=== PATIENT | female | born 1940 | race Caucasian/White ===

== ENCOUNTER → 2018-09-18 11:44 | Outpatient (CLI) | payer MEDICARE, SELFPAY ==
[2018-09-18 12:27] LABS: Add Manual Diff / Slide Review NO; Basophils Absolute Auto 100 /uL (0-100); Basophils Percent Auto 0.7 % (0-2); Eosinophils Absolute Auto 100 /uL (0-450); Eosinophils Percent Auto 1.5 % (2-4); Hematocrit 45.6 % (36-46); Hemoglobin 15.1 g/dL (12.0-16.0); Lymphocytes Absolute Auto 1900 /uL (1100-4500); Lymphocytes Percent Auto 27.3 % (25-40); Mean Corpuscular HGB Conc 33.1 % (30-36); Mean Corpuscular Hemoglobin 29.4 PG (26-34); Mean Corpuscular Volume 88.9 fL (80-100); Monocytes Absolute Auto 600 /uL (0-900); Monocytes Percent Auto 7.9 % (3-14); Neutrophils Absolute Auto 4400 /uL (1500-7000); Neutrophils Percent Auto 62.6 % (50-75); Platelet Count 231 X10^3/uL (150-400); Red Blood Cell Count 5.13 X10^6/uL (4.0-5.2); White Blood Cell Count 7.1 X10^3/uL (4.5-11.0)
[2018-09-18 12:40] LABS: Alanine Aminotransferase 23 IU/L (9-52); Albumin 4.6 g/dL (3.5-5.0); Albumin Globulin Ratio 1.5 (1.0-2.8); Alkaline Phosphatase 47 U/L (38-126); Aspartate Aminotransferase 24 IU/L (14-36); Blood Urea Nitrogen 12 mg/dL (7-17); Calcium 9.7 mg/dL (8.4-10.2); Carbon Dioxide 26 mmol/L (22-32); Chloride 101 mmol/L (98-107); Estimated Glomerular Filt Rate > 60.0 mL/min (>60); Glucose 105 mg/dL (80-110); HEMOLYSIS < 15 (0-50); Potassium 4.1 mmol/L (3.4-5.1); Sodium 137 mmol/L (137-145); Total Protein 7.6 g/dL (6.3-8.2)
[2018-09-18 13:43] LABS: TSH w/ Reflex to FT4 2.15 uIU/mL (0.47-4.68)
== END ==
PROVIDERS: PCP Family Medicine; Visit Provider Family Medicine
DX: E78.2 Mixed hyperlipidemia (principal); F02.80 Dementia in other diseases classified elsewhere, unspecified severity, without behavioral disturbance, psychotic disturbance, mood disturbance, and anxiety; G30.9 Alzheimer's disease, unspecified; I10 Essential (primary) hypertension
CPT/HCPCS: 36415; 80053; 84443; 85025

== ENCOUNTER → 2018-10-16 12:11 | Outpatient (CLI) | payer MEDICARE, SELFPAY | PROVIDERS: PCP Family Medicine; Visit Provider Family Medicine | DX: R30.0 Dysuria (principal) | CPT/HCPCS: 87077; 87086; 87147; 87186 ==

== ENCOUNTER 2019-06-07 10:33 | Emergency (ER) | payer MEDICARE, SELFPAY ==
--- NOTE | 2019-06-07 10:58 | DI.RAD.S_ITS ---
PROCEDURE: XR CHEST 1V INDICATIONS: chest pain TECHNIQUE: One view of the chest was acquired. COMPARISON: [facility], CR, XR LUMBAR SPINE 2-3V, 06/07/2019, 11:30. FINDINGS: Surgical changes and devices: None. Lungs and pleura: Lungs are clear. No pleural effusions or pneumothorax. Mediastinum: The cardiac contours are within normal limits. The aorta demonstrates calcification and tortuosity. Bones and chest wall: Age-appropriate bony degenerative changes are seen. No suspicious bony lesions. Overlying soft tissues appear unremarkable. IMPRESSION: Portable chest within normal limits. Dictated by: Ander Lagunas M.D. on 06/07/2019 at 11:03 Approved by: Ander Lagunas M.D. on 06/07/2019 at 11:04
[2019-06-07 11:04] VITALS: BP 149/62; PULSE 65; RESP 16; TEMP 36.8; O2SAT 98
--- NOTE | 2019-06-07 11:07 | ED_ITS ---
HPI - Syncope General Chief Complaint: Syncope Stated Complaint: GLF Time Seen by Provider: 06/07/19 10:48 Source: EMS Mode of arrival: EMS Limitations: no limitations History of Present Illness HPI narrative: The patient is an 78-year-old female with history of Alzheimer's presenting with her daughter after possible syncopal episode and ground level fall. Daughter states around 5:00 a.m. they heard is the patient pounding on a door or wall. She apparently got up the middle of night to use the restroom when she fell. They're able to get her back up into bed without much difficulty. Daughter went into the room to help get her out of bed this morning. She sat her up in the bed she had a staring off into space look and fell backwards on the bed she quickly came around. There was no foaming at the mouth shaking or urinary incontinence. She has questionable back pain. Patient now really has no complaints. Upon sitting her up her lower lumbar back does seem to hurt her. Related Data Home Medications Medication Instructions Recorded Confirmed CA PANTOTHENATE/FOLIC ACID/VIT 1 tab PO QDAY #0 07/23/12 03/24/19 (MULTIVITAMIN) cholecalciferol (vitamin D3) 2,000 unit PO QDAY #0 07/23/12 03/24/19 [Vitamin D3] ASPIRIN (Aspir-Low) 162 mg PO HS #0 12/04/12 03/24/19 niacin 100 mg PO QDAY #0 12/04/12 03/24/19 Previous Rx's Medication Instructions Recorded donepezil 10 mg tablet 10 mg PO BEDTIME #90 tab 03/24/19 hydrochlorothiazide 25 mg tablet 25 mg PO QDAY #90 tab 03/24/19 sertraline 50 mg tablet 50 mg PO DAILY #90 tab 03/24/19 tramadol 50 mg PO Q8H PRN #10 tab 06/07/19 Allergies Allergy/AdvReac Type Severity Reaction Status Date / Time No Known Drug Allergies Allergy Verified 03/24/19 13:56 Review of Systems Review of Systems ROS Unobtainable: All systems reviewed & are unremarkable except as noted in HPI and below Constitutional Constitutional: Denies chills, Denies fever(s), Denies lethargy and Denies we akness Eyes Eyes: Denies change in vision, Denies eye discharge, Denies irritation and Denies loss of vision ENT Ears, Nose, Mouth, and Throat: Denies change in voice, Denies neck pain and Denies sore throat Cardiovascular Cardiovascular: Denies chest pain, Reports syncope, Denies rapid heart rate, D enies dyspnea and Denies dyspnea on exertion Respiratory Respiratory: Denies cough, Denies dyspnea, Denies dyspnea on exertion and Denies wheezing Gastrointestinal Gastrointestinal: Denies abdominal pain, Denies change in bowel habits, Denies diarrhea, Denies nausea and Denies vomiting Musculoskeletal Musculoskeletal: Denies neck pain Integumentary/Breasts Skin/Breast: Denies pruritus, Denies erythema, Denies rash and Denies wounds Neurologic Neurologic: Denies confusion, Reports syncope, Denies loss of vision and Denies weakness Psychiatric Psychiatric: Denies anxiety, Denies confusion, Denies depression, Denies homicidal ideation and Denies suicidal ideation Allergic/Immunologic Allergic/Immunologic: Denies wheezing Patient History Medical History Alzheimer's dementia (Suspected) Essential hypertension Mixed hyperlipidemia Status post biopsy of thyroid gland (11/25/14) Social History marital status: Smoking Status: Never smoker alcohol intake: current (ON OCCASION ) substance use type: does not use Smoking Status: Never smoker Exam Initial Vital Signs Initial Vital Signs: Vital Signs Temperature 98.3 F 06/07/19 11:04 Pulse Rate 65 06/07/19 11:04 Respiratory Rate 16 06/07/19 11:04 Blood Pressure 149/62 H 06/07/19 11:04 Pulse Oximetry 98 06/07/19 11:04 GENERAL: Alert well-appearing acting elderly female and in distress. HEENT: Head atraumatic,EOMI, pupils reactive, face symmetric, CARDIOVASCULAR: Regular rate and rhythm without murmurs, rubs or gallops. RESPIRATORY: Breath sounds equal bilaterally, no wheezes rales or rhonchi. ABDOMEN: Soft, nontender. Normoactive bowel sounds all 4 quadrants. No guarding or rebound. BACK: No midline or vertebral tenderness she does have some left lower lumbar no sign of trauma EXTREMITIES: Normal range of motion, no clubbing or edema. Neurovascularly i ntact. Pelvis and hip stable nontender NEUROLOGICAL: Alert and oriented x 2. Senior Applications Developer strength equal bilaterally able to lift lower extremity SKIN: Warm, dry, no laceration, no petechiae, no rashes or lesions. Course Orders Ordered: ED Orders 06/07/19 10:58 XR chest 1V Stat EKG-12 Lead Stat 06/07/19 11:18 CT head/brain wo con Stat XR lumbar spine 2-3V Stat 06/07/19 11:59 Complete Blood Count AUTO DIFF Stat Comprehensive Metabolic Panel Stat Lipase Stat Partial Thromboplastin Time Stat Prolactin Stat Prothrombin Time INR Stat Troponin & CK Cardiac Panel Stat Discontinued Medications Ketorolac Tromethamine (Toradol) 15 mg IV NOW ONE Stop: 06/07/19 12:59 Last Admin: 06/07/19 13:04 Dose: 15 mg Documented by: DAMIÁN Vital Signs Vital signs: Vital Signs - 8 hr 06/07/19 11:04 06/07/19 12:03 06/07/19 12:30 Temperature 98.3 F Pulse Rate 65 59 L 67 Respiratory Rate 16 22 19 Blood Pressure [Left Arm] 149/62 H 148/83 H 145/80 H Pulse Oximetry 98 100 99 06/07/19 13:27 06/07/19 14:15 Temperature Pulse Rate 67 69 Respiratory Rate 17 18 Blood Pressure [Left Arm] 141/82 H 150/74 H Pulse Oximetry 100 100 MDM - Syncope Lab Data Attestation: I reviewed the patient's lab results. Result diagrams: 06/07/19 11:59 06/07/19 11:59 Labs: Lab Results 06/07/19 06/07/19 06/07/19 Range/Units 11:59 11:59 11:59 WBC 13.8 H (4.5-11.0) X10^3/uL RBC 5.18 (4.0-5.2) X10^6/uL Hgb 15.3 (12.0-16.0) g/dL Hct 45.4 (36-46) % MCV 87.6 (80-100) fL MCH 29.6 (26-34) PG MCHC 33.8 (30-36) % RDW 14.2 (11.6-14.8) % Plt Count 250 (150-400) X10^3/uL Neut % (Auto) 87.2 H (50-75) % Lymph % (Auto) 7.6 L (25-40) % Custer % (Auto) 4.9 (3-14) % Eos % (Auto) 0.1 L (2-4) % Baso % (Auto) 0.2 (0-2) % Neut # (Auto) 14947 H (2906-5991) /uL Lymph # (Auto) 1000 L (7596-0412) /uL Custer # (Auto) 700 (0-900) /uL Eos # (Auto) 0 (0-450) /uL Baso # (Auto) 0 (0-100) /uL PT 10.8 (10.1-12.7) SECONDS INR 0.9 (0.9-1.3) APTT 28 (26.4-36.2) SECONDS Sodium 132 L (137-145) mmol/L Potassium 3.2 L (3.4-5.1) mmol/L Chloride 94 L (98-107) mmol/L Carbon Dioxide 29 (22-32) mmol/L BUN 10 (7-17) mg/dL Creatinine 0.50 L (0.52-1.04) mg/dL Estimated GFR > 60.0 (>60) mL/min BUN/Creatinine Ratio 20.0 (6-22) Glucose 132 H (80-110) mg/dL Calcium 9.5 (8.4-10.2) mg/dL Total Bilirubin 1.0 (0.2-1.3) mg/dL AST 38 H (14-36) IU/L ALT 22 (<35) IU/L Alkaline Phosphatase 71 (38-126) U/L Total Creatine Kinase 124 (30-135) U/L CK-MB (CK-2) 2.64 H (<2.37) ng/mL CK-MB (CK-2) Rel Index 2.1 (1.5-5.0) % Troponin I < 0.012 (0.01-0.034) ng/mL Total Protein 7.6 (6.3-8.2) g/dL Albumin 4.5 (3.5-5.0) g/dL Globulin 3.1 (1.7-4.1) g/dL Albumin/Globulin Ratio 1.5 (1.0-2.8) Lipase 56 (23-300) U/L Prolactin (3.0-18.6) ng/mL 06/07/19 Range/Units 11:59 WBC (4.5-11.0) X10^3/uL RBC (4.0-5.2) X10^6/uL Hgb (12.0-16.0) g/dL Hct (36-46) % MCV (80-100) fL MCH (26-34) PG MCHC (30-36) % RDW (11.6-14.8) % Plt Count (150-400) X10^3/uL Neut % (Auto) (50-75) % Lymph % (Auto) (25-40) % Custer % (Auto) (3-14) % Eos % (Auto) (2-4) % Baso % (Auto) (0-2) % Neut # (Auto) (1731-1037) /uL Lymph # (Auto) (2346-8793) /uL Custer # (Auto) (0-900) /uL Eos # (Auto) (0-450) /uL Baso # (Auto) (0-100) /uL PT (10.1-12.7) SECONDS INR (0.9-1.3) APTT (26.4-36.2) SECONDS Sodium (137-145) mmol/L Potassium (3.4-5.1) mmol/L Chloride (98-107) mmol/L Carbon Dioxide (22-32) mmol/L BUN (7-17) mg/dL Creatinine (0.52-1.04) mg/dL Estimated GFR (>60) mL/min BUN/Creatinine Ratio (6-22) Glucose (80-110) mg/dL Calcium (8.4-10.2) mg/dL Total Bilirubin (0.2-1.3) mg/dL AST (14-36) IU/L ALT (<35) IU/L Alkaline Phosphatase (38-126) U/L Total Creatine Kinase (30-135) U/L CK-MB (CK-2) (<2.37) ng/mL CK-MB (CK-2) Rel Index (1.5-5.0) % Troponin I (0.01-0.034) ng/mL Total Protein (6.3-8.2) g/dL Albumin (3.5-5.0) g/dL Globulin (1.7-4.1) g/dL Albumin/Globulin Ratio (1.0-2.8) Lipase (23-300) U/L Prolactin 9.8 (3.0-18.6) ng/mL Imaging Data CT scan - head: Radiologist's Impression: PROCEDURE: CT HEAD/BRAIN WO CON INDICATIONS: passed out fall, can't remember TECHNIQUE: Noncontrast 4.5 mm thick angled axial sections acquired from the foramen magnum to the vertex, with coronal and sagittal reformats. For radiation dose reduction, the following was used: automated exposure control, adjustment of mA and/or kV according to patient size. COMPARISON: [facility], , BRAIN WITHOUT CONTRAST, 06/15/2017, 12:33. FINDINGS: Image quality: Excellent. CSF spaces: Basal cisterns are patent. No extra-axial fluid collections. The ventricles are symmetric in size and shape. Brain: No intracranial bleeds or masses. There is cerebral volume loss for age, with resultant ventricular and sulcal prominence. There are periventricular and deep white matter chronic small vessel ischemic changes. There is intracranial internal carotid artery atherosclerosis. Skull and face: Calvarium and visualized facial bones appear intact, without suspicious lesions. Sinuses: Visualized sinuses and mastoids are clear. IMPRESSION: No acute intracranial hemorrhage is seen. No acute intracranial process is seen. Dictated by: Ander Lagunas M.D. on 06/07/2019 at 10:44 lumbar: Radiologist's Impression: PROCEDURE: XR LUMBAR SPINE 2-3V INDICATIONS: fall pain TECHNIQUE: 3 views of the lumbar spine were acquired. COMPARISON: [facility], CR, XR CHEST 1V, 06/07/2019, 11:30. [facility], CR, L-SPINE 2-3 VIEWS, 07/17/2012, 9:51. FINDINGS: Bones: 5 [id number] vertebrae are present. There is normal bony alignment. Mild T12 anterior wedge deformity seen, with 20% loss of height anteriorly. No suspicious bony lesions. The disc spaces are relatively well-preserved. Facet arthropathy is seen, which is most prominent inferiorly. Soft tissues: Overlying bowel gas pattern is normal. No suspicious soft tissue calcifications. IMPRESSION: Mild T12 anterior wedge deformity, which is age-indeterminate. If it would be helpful for clinical management decision making, please consider a dedicated CT study for further evaluation. Dictated by: Ander Lagunas M.D. on 06/07/2019 at 11:04 ECG Data Attestation: I personally reviewed and interpreted this ECG as follows: Prior ECG tracings: not available for review Interpretation: Sinus rhythm rate 65 p.r. interval 206 QRS 81 QTC 439 no to patient depression or T-wave inversion no priors to compare MDM Narrative Medical decision making narrative: The patient is found to have compression fracture at T12. While laying still she is completely asymptomatic however with any movement she does have pain. She is given Toradol and had ambulation trial with walker. She ambulated very well. Unknown reason for fall last night however the power went out and she was unable to see so that may have contributed. At this time her pain is controlled she is ambulating no need for admission. I've discussed this with the daughter as well. Recommend outpatient follow-up. Discharge Plan Departure Patient Disposition: Home Clinical Impression: Closed wedge compression fracture of T12 vertebra Qualifiers: Encounter type: initial encounter Qualified Code(s): S22.080A - Wedge compression fracture of T11-T12 vertebra, initial encounter for closed fracture Instructions: DI for Vertebral Fracture Activity Restrictions/Additional Instructions: *You have been diagnosed with compression fracture T12 *What to do: At this time recommend ambulation with walker it will help take pain off the spine. The bone should heal without any surgery. At this time c onservative management with pain control own *Continue to take medications as directed Tylenol 650 mg every 4-6 hours if needed for [id number] Tramadol 0.5 -1 tablet every 6 hours if needed for severe pain *Follow up with your primary care provider in 2-3 days *Return to ER if you should have increasing pain, leg weakness, loss of urine or stool or any new, worsening or concerning symptoms CONTROLLED SUBSTANCE DISCHARGE (Narcotoic/benzodiazepine/Flexeril/Phenergan) 1. You have been prescribed narcotic medications, it does have acetaminophen/Tylenol/paracetamol in it so do not take extra Tylenol or Tylenol containing products TRAMADOL DOES NOT CONTAIN TYLENOL 2. Please understand that we cannot provide further refills of narcotics, benzodiazepines or controlled substances through the ED and her pain management will need to be through your provider. 3. While on these medications you cannot drive or operate heavy machinery. 4. You cannot sign legal documents or perform any duties such as this. 5. As long as you're taking opiate pain medications he should also be taking a stool softener such as Colace, Dulcolax, MiraLAX or prune juice, to help avoid constipation. Prescriptions: New tramadol 50 mg tablet 50 mg PO Q8H PRN (Reason: pain) Qty: 10 RF: 0 No Action donepezil 10 mg tablet 10 mg PO BEDTIME Qty: 90 RF: 3 hydrochlorothiazide 25 mg tablet 25 mg PO QDAY Qty: 90 RF: 3 sertraline 50 mg tablet 50 mg PO DAILY Qty: 90 RF: 3 CA PANTOTHENATE/FOLIC ACID/VIT (MULTIVITAMIN) 1 tab PO QDAY Qty: 0 RF: 0 cholecalciferol (vitamin D3) [Vitamin D3] 2,000 UNIT capsule 2,000 unit PO QDAY Qty: 0 RF: 0 niacin 100 MG tablet 100 mg PO QDAY Qty: 0 RF: 0 ASPIRIN (Aspir-Low) 162 mg PO HS Qty: 0 RF: 0 Referrals: Rell Juárez MD [Primary Care Provider] -
--- NOTE | 2019-06-07 11:18 | DI.RAD.S_ITS ---
PROCEDURE: XR LUMBAR SPINE 2-3V INDICATIONS: fall pain TECHNIQUE: 3 views of the lumbar spine were acquired. COMPARISON: [facility], CR, XR CHEST 1V, 06/07/2019, 11:30. [facility], RAUL, L-SPINE 2-3 VIEWS, 07/17/2012, 9:51. FINDINGS: Bones: 5 [id number] vertebrae are present. There is normal bony alignment. Mild T12 anterior wedge deformity seen, with 20% loss of height anteriorly. No suspicious bony lesions. The disc spaces are relatively well-preserved. Facet arthropathy is seen, which is most prominent inferiorly. Soft tissues: Overlying bowel gas pattern is normal. No suspicious soft tissue calcifications. IMPRESSION: Mild T12 anterior wedge deformity, which is age-indeterminate. If it would be helpful for clinical management decision making, please consider a dedicated CT study for further evaluation. Dictated by: Ander Lagunas M.D. on 06/07/2019 at 11:04 Approved by: Ander Lagunas M.D. on 06/07/2019 at 11:06
--- NOTE | 2019-06-07 11:18 | DI.CT.S_ITS ---
PROCEDURE: CT HEAD/BRAIN WO CON INDICATIONS: passed out fall, can't remember TECHNIQUE: Noncontrast 4.5 mm thick angled axial sections acquired from the foramen magnum to the vertex, with coronal and sagittal reformats. For radiation dose reduction, the following was used: automated exposure control, adjustment of mA and/or kV according to patient size. COMPARISON: [facility], MR, BRAIN WITHOUT CONTRAST, 06/15/2017, 12:33. FINDINGS: Image quality: Excellent. CSF spaces: Basal cisterns are patent. No extra-axial fluid collections. The ventricles are symmetric in size and shape. Brain: No intracranial bleeds or masses. There is cerebral volume loss for age, with resultant ventricular and sulcal prominence. There are periventricular and deep white matter chronic small vessel ischemic changes. There is intracranial internal carotid artery atherosclerosis. Skull and face: Calvarium and visualized facial bones appear intact, without suspicious lesions. Sinuses: Visualized sinuses and mastoids are clear. IMPRESSION: No acute intracranial hemorrhage is seen. No acute intracranial process is seen. Dictated by: Ander Lagunas M.D. on 06/07/2019 at 10:44 Approved by: Ander Lagunas M.D. on 06/07/2019 at 10:46
[2019-06-07 12:03] VITALS: BP 148/83; PULSE 59; RESP 22; O2SAT 100
[2019-06-07 12:06] LABS: Add Manual Diff / Slide Review NO; Basophils Absolute Auto 0 /uL (0-100); Basophils Percent Auto 0.2 % (0-2); Eosinophils Absolute Auto 0 /uL (0-450); Eosinophils Percent Auto 0.1 % (2-4); Hematocrit 45.4 % (36-46); Hemoglobin 15.3 g/dL (12.0-16.0); Lymphocytes Absolute Auto 1000 /uL (1100-4500); Lymphocytes Percent Auto 7.6 % (25-40); Mean Corpuscular HGB Conc 33.8 % (30-36); Mean Corpuscular Hemoglobin 29.6 PG (26-34); Mean Corpuscular Volume 87.6 fL (80-100); Monocytes Absolute Auto 700 /uL (0-900); Monocytes Percent Auto 4.9 % (3-14); Neutrophils Absolute Auto 12000 /uL (1500-7000); Neutrophils Percent Auto 87.2 % (50-75); Platelet Count 250 X10^3/uL (150-400); Red Blood Cell Count 5.18 X10^6/uL (4.0-5.2); Red Cell Distribution Width 14.2 % (11.6-14.8); White Blood Cell Count 13.8 X10^3/uL (4.5-11.0)
[2019-06-07 12:22] LABS: INR 0.9 (0.9-1.3); Prothrombin Time 10.8 SECONDS (10.1-12.7)
[2019-06-07 12:25] LABS: PTT Partial Thromboplastin Tim 28 SECONDS (26.4-36.2)
[2019-06-07 12:27] LABS: Alanine Aminotransferase 22 IU/L (<35); Albumin 4.5 g/dL (3.5-5.0); Albumin Globulin Ratio 1.5 (1.0-2.8); Alkaline Phosphatase 71 U/L (38-126); Aspartate Aminotransferase 38 IU/L (14-36); Blood Urea Nitrogen 10 mg/dL (7-17); Calcium 9.5 mg/dL (8.4-10.2); Carbon Dioxide 29 mmol/L (22-32); Chloride 94 mmol/L (98-107); Creatine Kinase 124 U/L (30-135); Estimated Glomerular Filt Rate > 60.0 mL/min (>60); Globulin 3.1 g/dL (1.7-4.1); Glucose 132 mg/dL (80-110); HEMOLYSIS < 15 (0-50); Lipase 56 U/L (23-300); Potassium 3.2 mmol/L (3.4-5.1); Sodium 132 mmol/L (137-145); Total Protein 7.6 g/dL (6.3-8.2)
[2019-06-07 12:30] VITALS: BP 145/80; PULSE 67; RESP 19; O2SAT 99
[2019-06-07 12:39] LABS: Troponin I < 0.012 ng/mL (0.01-0.034)
[2019-06-07 12:42] LABS: CKMB % Relative Index 2.1 % (1.5-5.0); Creatine Kinase MB 2.64 ng/mL (<2.37)
[2019-06-07 12:44] LABS: Prolactin 9.8 ng/mL (3.0-18.6)
[2019-06-07] MEDS: KETOROLAC 60 MG/2 ML VIAL 15 MG IV (13:04)
[2019-06-07 13:27] VITALS: BP 141/82; PULSE 67; RESP 17; O2SAT 100
[2019-06-07 14:15] VITALS: BP 150/74; PULSE 69; RESP 18; O2SAT 100
--- NOTE | 2019-06-07 14:15 | PC.NURSE ---
SBA with patient and walker to the bathroom and back.
== END 2019-06-07 14:49 | disposition home or self-care (01) ==
PROVIDERS: Emergency Provider Emergency Medicine; PCP Family Medicine
DX: S22.080A Wedge compression fracture of T11-T12 vertebra, initial encounter for closed fracture (principal); I10 Essential (primary) hypertension; W18.30XA Fall on same level, unspecified, initial encounter
CPT/HCPCS: 36415; 70450; 71045; 72100; 80053; 82550; 82553; 83690; 84146; 84484; 85025; 85610; 85730; 93005; 96374; 99285; J1885

== ENCOUNTER → 2022-06-13 09:50 | Outpatient (CLI) | payer MEDICARE, SELFPAY ==
[2022-06-13 10:45] LABS: Add Manual Diff / Slide Review NO; Basophils Absolute Auto 0 /uL (0-100); Basophils Percent Auto 0.6 % (0-2); Eosinophils Absolute Auto 100 /uL (0-450); Eosinophils Percent Auto 1.2 % (2-4); Hematocrit 43.5 % (36-46); Hemoglobin 14.3 g/dL (12.0-16.0); Lymphocytes Absolute Auto 1100 /uL (1100-4500); Lymphocytes Percent Auto 14.6 % (25-40); Mean Corpuscular Hemoglobin 29.9 PG (26-34); Mean Corpuscular Volume 90.7 fL (80-100); Monocytes Absolute Auto 500 /uL (0-900); Monocytes Percent Auto 6.7 % (3-14); Neutrophils Absolute Auto 5600 /uL (1500-7000); Neutrophils Percent Auto 76.9 % (50-75); Platelet Count 244 X10^3/uL (150-400); Red Blood Cell Count 4.79 X10^6/uL (4.0-5.2); Red Cell Distribution Width 15.8 % (11.6-14.8); White Blood Cell Count 7.3 X10^3/uL (4.5-11.0)
[2022-06-13 10:59] LABS: Alanine Aminotransferase 18 IU/L (<35); Albumin 4.2 g/dL (3.5-5.0); Albumin Globulin Ratio 1.4 (1.0-2.8); Alkaline Phosphatase 53 U/L (38-126); Aspartate Aminotransferase 23 IU/L (14-36); BUN Creatinine Ratio 15.4 (6-22); Bilirubin Total 0.9 mg/dL (0.2-1.3); Blood Urea Nitrogen 10 mg/dL (7-17); Calcium 9.2 mg/dL (8.4-10.2); Carbon Dioxide 31 mmol/L (22-32); Chloride 97 mmol/L (98-107); Estimated Glomerular Filt Rate > 60 mL/min (>60); Glucose 98 mg/dL (80-110); HEMOLYSIS < 15 (0-50); Potassium 3.8 mmol/L (3.4-5.1); Sodium 136 mmol/L (137-145); Total Protein 7.2 g/dL (6.3-8.2)
== END ==
PROVIDERS: PCP Family Medicine; Referring Provider Nurse Practitioner Family; Visit Provider Nurse Practitioner Family
DX: D72.829 Elevated white blood cell count, unspecified (principal); Z71.89 Other specified counseling
CPT/HCPCS: 36415; 80053; 85025

== ENCOUNTER 2023-01-18 18:30 | Emergency (ER) | payer MEDICARE, SELFPAY ==
[2023-01-18] VITALS (12 sets, daily range): BP systolic 139–174; BP diastolic 63–90; PULSE 61–74; RESP 15; TEMP 36.6; O2SAT 94–98
--- NOTE | 2023-01-18 19:43 | PC.NURSE ---
Patient has skin tears to left and right forearms which have been previously bandaged. Re applied gentle border pink bandages with bacitracin.
--- NOTE | 2023-01-18 19:54 | ED_ITS ---
HPI - Back Pain/Injury General Chief Complaint: Back Pain/Injury Stated Complaint: R Flank Pain Time Seen by Provider: 01/18/23 19:18 Source: family and EMS Mode of arrival: EMS Limitations: other (Dementia) History of Present Illness HPI Narrative: Patient is an 82-year-old female. Has a history of dementia. Lives in a memory care facility. Was brought in by EMS for evaluation of injuries that she sustained. Per report she was dancing when she had a fall. There was no reports of any loss of consciousness. She is not on blood thinners. Did not hit her head. She was complaining of right-sided flank pain. She also has some skin tears to both of her arms. Related Data Previous Rx's Medication Instructions Recorded donepezil 5 mg tablet 5 mg PO BEDTIME #90 tabs 09/12/21 hydrochlorothiazide 25 mg tablet 25 mg PO QDAY #90 tabs 05/01/22 sertraline 50 mg tablet 75 mg PO DAILY #135 tabs 05/01/22 Allergies Allergy/AdvReac Type Severity Reaction Status Date / Time No Known Drug Allergies Allergy Verified 01/18/23 18:43 Review of Systems Review of Systems Narrative: Provided by EMS and family. Patient is unable to provide any review of systems or HPI given her history of dementia Patient History Medical History Alzheimer's dementia Essential hypertension Mixed hyperlipidemia Status post biopsy of thyroid gland (11/25/14) Social History marital status: Smoking Status: Never smoker alcohol intake: current (ON OCCASION ) substance use type: does not use Smoking Status: Never smoker alcohol intake frequency: 0-2 drinks per day Substance Use Type: does not use Exam Initial Vital Signs Initial Vital Signs: Vital Signs Temperature 97.9 F 01/18/23 18:35 Pulse Rate 74 01/18/23 18:35 Respiratory Rate 15 01/18/23 18:35 Blood Pressure 174/90 H 01/18/23 18:35 Pulse Oximetry 97 01/18/23 18:35 Oxygen Delivery Method Room Air 01/18/23 18:35 GI Other: No abdominal tenderness. Back/Spine/Pelvis Other: Some discomfort to the right flank. Skin Other: Superficial skin tears to her right and left elbows. Neuro Other: Baseline neurologic status per family at bedside. Extrem Other: No gross deformities. Seems to have no discomfort with palpation of her hips. Is able to ambulate. Upper extremities unremarkable. Course Orders Ordered: ED Orders 01/18/23 19:55 XR lumbar spine 2-3V Stat XR ribs RT min 3V w CXR1V Stat Discontinued Medications Acetaminophen (Acetaminophen 325 Mg Tablet) 975 mg PO NOW ONE Stop: 01/18/23 22:26 Last Admin: 01/18/23 22:34 Dose: 975 mg Documented By: SHALONDA Bacitracin (Bacitracin Oint 0.9 Gm Pckt) 2 applic TOP NOW ONE Stop: 01/18/23 19:45 Last Admin: 01/18/23 20:04 Dose: 2 applic Documented By: SHALONDA Vital Signs Vital signs: Vital Signs - 8 hr 01/18/23 20:02 01/18/23 20:34 01/18/23 20:34 Pulse Rate 67 66 Blood Pressure 162/77 H Pulse Oximetry 95 96 01/18/23 21:00 01/18/23 21:01 01/18/23 21:01 Pulse Rate 64 63 Blood Pressure 154/70 H Pulse Oximetry 94 94 01/18/23 21:30 01/18/23 21:30 01/18/23 22:00 Pulse Rate 63 61 Blood Pressure 140/71 Pulse Oximetry 94 98 01/18/23 22:30 01/18/23 22:31 01/18/23 22:31 Pulse Rate 62 63 Blood Pressure 154/63 H Pulse Oximetry 95 95 MDM - Back Pain/Injury Imaging Data Lumbar spine x-ray: Radiologist's Impression: PROCEDURE:? XR LUMBAR SPINE 2-3V ? INDICATIONS:? lower back pain after fall ? TECHNIQUE:? 3 views of the lumbar spine were acquired.? ? COMPARISON:? [facility], , XR LUMBAR SPINE 2-3V, 06/07/2019, 11:30. ? FINDINGS:? ? Bones:? 5 [id number] vertebrae are present.? There is transitional anatomy with lumbarization of S1.? Mild leftward curvature of the lumbar spine centered at L3.? There is minimal retrolisthesis of T12 on L1, L1-L2, and L2 and L3 as well as minimal anterolisthesis at L4-5 and L5-S1.? Findings are similar to the prior study.? No vertebral body compression fractures.? There is a mild compression deformity of the T12 vertebral body redemonstrated.? There is mild multilevel degenerative disc disease.? Moderate facet arthropathy demonstrated in the lower lumbar spine.? No suspicious bony lesions.? ? Soft tissues:? Overlying bowel gas pattern is normal.? No suspicious soft tissue calcifications.? ? ? IMPRESSION:? ? 1. No definite acute fracture or subluxation. ? 2. Mild compression deformity of the L1 vertebral body appears unchanged. ? 3. Multilevel degenerative changes including moderate facet arthropathy in the lower lumbar spine redemonstrated.? Rib x-ray: Radiologist's Impression: PROCEDURE:? XR RIBS RT MIN 3V W CXR 1V ? INDICATIONS:? R lower posterior rib pain ? TECHNIQUE:? Two views of the right ribs were acquired, along with a single view chest.? ? COMPARISON:? None. ? FINDINGS:? ? Surgical changes and devices:? None.? ? Bones and chest wall:? No displaced rib fracture identified.? No suspicious bony lesions. ?Overlying soft tissues appear unremarkable.? ? Lungs and pleura:? No pleural effusions or pneumothorax.? Lungs appear clear.? ? Mediastinum:? Mediastinal contours appear normal.? Heart size is normal.? ? IMPRESSION:? ? 1. No displaced rib fracture identified. MDM Narrative Medical decision making narrative: Baseline neurologic status per family who were at bedside. Skin tears were cleaned and bandaged. X-ray show no acute pathology. Patient is ambulatory. No further workup required in the emergency department. Will discharge home. Discharge Plan Departure Patient Disposition: Home Clinical Impression: Fall, Flank pain Instructions: How to Prevent Falls Activity Restrictions/Additional Instructions: Jacqueline can take Tylenol for any apparent discomfort. She is no restrictions on her activities. Return to the emergency department for new symptoms. Prescriptions: No Action donepezil 5 mg tablet 5 mg PO BEDTIME Qty: 90 3RF sertraline 50 mg tablet 75 mg PO DAILY Qty: 135 1RF hydrochlorothiazide 25 mg tablet 25 mg PO QDAY Qty: 90 1RF Referrals: Rell Juárez MD [Primary Care Provider] - Stand Alone Forms: Patient Portal/API
--- NOTE | 2023-01-18 19:55 | DI.RAD.S_ITS ---
PROCEDURE: XR LUMBAR SPINE 2-3V INDICATIONS: lower back pain after fall TECHNIQUE: 3 views of the lumbar spine were acquired. COMPARISON: [facility], CR, XR LUMBAR SPINE 2-3V, 06/07/2019, 11:30. FINDINGS: Bones: 5 [id number] vertebrae are present. There is transitional anatomy with lumbarization of S1. Mild leftward curvature of the lumbar spine centered at L3. There is minimal retrolisthesis of T12 on L1, L1-L2, and L2 and L3 as well as minimal anterolisthesis at L4-5 and L5-S1. Findings are similar to the prior study. No vertebral body compression fractures. There is a mild compression deformity of the T12 vertebral body redemonstrated. There is mild multilevel degenerative disc disease. Moderate facet arthropathy demonstrated in the lower lumbar spine. No suspicious bony lesions. Soft tissues: Overlying bowel gas pattern is normal. No suspicious soft tissue calcifications. IMPRESSION: 1. No definite acute fracture or subluxation. 2. Mild compression deformity of the L1 vertebral body appears unchanged. 3. Multilevel degenerative changes including moderate facet arthropathy in the lower lumbar spine redemonstrated. Dictated by: Cortez Huynh M.D. on 01/18/2023 at 21:41 Approved by: Cortez Huynh M.D. on 01/18/2023 at 21:44
--- NOTE | 2023-01-18 19:55 | DI.RAD.S_ITS ---
PROCEDURE: XR RIBS RT MIN 3V W CXR 1V INDICATIONS: R lower posterior rib pain TECHNIQUE: Two views of the right ribs were acquired, along with a single view chest. COMPARISON: None. FINDINGS: Surgical changes and devices: None. Bones and chest wall: No displaced rib fracture identified. No suspicious bony lesions. Overlying soft tissues appear unremarkable. Lungs and pleura: No pleural effusions or pneumothorax. Lungs appear clear. Mediastinum: Mediastinal contours appear normal. Heart size is normal. IMPRESSION: 1. No displaced rib fracture identified. Dictated by: Cortez Huynh M.D. on 01/18/2023 at 21:44 Approved by: Cortez Huynh M.D. on 01/18/2023 at 21:45
[2023-01-18] MEDS: BACITRACIN OINT 0.9 GM PCKT 2 APPLIC TOP (20:04)
--- NOTE | 2023-01-18 22:05 | PC.NURSE ---
Patient ambulated to bathroom with no complaints of dizziness. She had 5\10 right sided back pain. Patient resting back in bed.
[2023-01-18] MEDS: ACETAMINOPHEN 325 MG TABLET 975 MG PO (22:34)
== END 2023-01-18 22:53 | disposition home or self-care (01) ==
PROVIDERS: Emergency Provider Emergency Medicine; PCP Family Medicine
DX: R10.9 Unspecified abdominal pain (principal); M54.50 Low back pain, unspecified; W18.30XA Fall on same level, unspecified, initial encounter; F03.90 Unspecified dementia, unspecified severity, without behavioral disturbance, psychotic disturbance, mood disturbance, and anxiety
CPT/HCPCS: 71101; 72100; 99283; 99284

== ENCOUNTER → 2023-05-15 22:58 | Outpatient (ROUT) | payer MEDICARE, SELFPAY ==
[2023-05-15 23:06] LABS: Appearance Urine UA CLEAR; Bilirubin Urine UA NEGATIVE (NEGATIVE); Color Urine UA YELLOW; Glucose Urine UA NEGATIVE (Negative); Ketones Urine UA TRACE (NEGATIVE); Leukocyte Esterase Urine UA 3+ (NEGATIVE); Nitrite Urine UA POSITIVE (Negative); Occult Blood Urine UA NEGATIVE (Negative); Protein Urine UA NEGATIVE (Negative); Urobilinogen Urine UA 0.2 E.U./dL (0.2)
[2023-05-15 23:16] LABS: pH Urine UA 6.5 (4.5-8.0)
[2023-05-15 23:17] LABS: Bacteria Urine Many (>30); Culture Indicated Urine Specimen Cultured; RBC Urine 0-1/HPF (0-5/HPF); Squamous Epithelial Cell Urine 1-5 /HPF (0-5/HPF); WBC Urine 30-100/HPF (0-5/HPF)
== END ==
PROVIDERS: PCP Family Medicine; Visit Provider Nurse Practitioner Family
DX: R30.0 Dysuria (principal)
CPT/HCPCS: 81001; 87077; 87086; 87186

== ENCOUNTER → 2023-07-01 15:25 | Outpatient (ROUT) | payer MEDICARE, SELFPAY ==
[2023-07-01 15:42] LABS: Appearance Urine UA CLEAR; Bilirubin Urine UA NEGATIVE (NEGATIVE); Color Urine UA YELLOW; Glucose Urine UA NEGATIVE (Negative); Ketones Urine UA NEGATIVE (NEGATIVE); Leukocyte Esterase Urine UA 2+ (NEGATIVE); Nitrite Urine UA NEGATIVE (Negative); Occult Blood Urine UA NEGATIVE (Negative); Protein Urine UA NEGATIVE (Negative); Urobilinogen Urine UA 0.2 E.U./dL (0.2)
[2023-07-01 15:43] LABS: pH Urine UA 5.5 (4.5-8.0)
[2023-07-01 16:04] LABS: Bacteria Urine None Seen; Culture Indicated Urine Specimen Cultured; RBC Urine None Seen (0-5/HPF); Squamous Epithelial Cell Urine 0-1 /HPF (0-5/HPF); Urine Volume 10mL (spun); WBC Urine 1-5/HPF (0-5/HPF)
== END ==
PROVIDERS: PCP Family Medicine; Visit Provider Nurse Practitioner Family
DX: R82.81 Pyuria (principal)
CPT/HCPCS: 81001; 87086

== ENCOUNTER → 2023-07-11 12:43 | Outpatient (ROUT) | payer MEDICARE, SELFPAY ==
[2023-07-11 13:04] LABS: Bilirubin Urine UA NEGATIVE (NEGATIVE); Color Urine UA YELLOW; Glucose Urine UA NEGATIVE (Negative); Ketones Urine UA NEGATIVE (NEGATIVE); Leukocyte Esterase Urine UA 3+ (NEGATIVE); Nitrite Urine UA NEGATIVE (Negative); Occult Blood Urine UA NEGATIVE (Negative); Protein Urine UA NEGATIVE (Negative); Specific Gravity Urine UA 1.015 (1.000-1.035); Urobilinogen Urine UA 0.2 E.U./dL (0.2)
[2023-07-11 13:05] LABS: Appearance Urine UA SL CLOUDY
[2023-07-11 13:08] LABS: Urine Volume 10mL (spun)
[2023-07-11 13:09] LABS: Bacteria Urine Few (2-10); RBC Urine None Seen (0-5/HPF); WBC Urine 5-10/HPF (0-5/HPF)
[2023-07-11 13:10] LABS: Culture Indicated Urine Specimen Cultured; Squamous Epithelial Cell Urine 5-10 /HPF (0-5/HPF)
== END ==
PROVIDERS: PCP Family Medicine; Visit Provider Nurse Practitioner Family
DX: R30.0 Dysuria (principal); N39.0 Urinary tract infection, site not specified
CPT/HCPCS: 81001; 87086

== ENCOUNTER → 2023-09-26 11:54 | Outpatient (ROUT) | payer MEDICARE, SELFPAY ==
[2023-09-26 12:03] LABS: Appearance Urine UA SL CLOUDY; Bilirubin Urine UA NEGATIVE (NEGATIVE); Color Urine UA YELLOW; Glucose Urine UA NEGATIVE (Negative); Ketones Urine UA NEGATIVE (NEGATIVE); Leukocyte Esterase Urine UA 3+ (NEGATIVE); Nitrite Urine UA POSITIVE (Negative); Occult Blood Urine UA NEGATIVE (Negative); Protein Urine UA NEGATIVE (Negative); Specific Gravity Urine UA 1.015 (1.000-1.035); Urobilinogen Urine UA 0.2 E.U./dL (0.2)
[2023-09-26 12:10] LABS: Bacteria Urine Many (>30); Culture Indicated Urine Specimen Cultured; RBC Urine None Seen (0-5/HPF); Squamous Epithelial Cell Urine 1-5 /HPF (0-5/HPF); Transitional Epi Cells Urine 0-1/HPF (0-5/HPF); Urine Volume 10mL (spun); WBC Urine 10-30/HPF (0-5/HPF)
== END ==
PROVIDERS: PCP Family Medicine; Visit Provider Nurse Practitioner Family
DX: N39.0 Urinary tract infection, site not specified (principal); R31.9 Hematuria, unspecified
CPT/HCPCS: 81001; 87077; 87086; 87186

== ENCOUNTER → 2023-10-08 15:23 | Outpatient (CLI) | payer MEDICARE, SELFPAY ==
[2023-10-08 16:38] LABS: Add Manual Diff / Slide Review NO; Basophils Absolute Auto 100 /uL (0-100); Basophils Percent Auto 0.7 % (0-2); Eosinophils Absolute Auto 500 /uL (0-450); Hematocrit 43.5 % (36-46); Hemoglobin 14.4 g/dL (12.0-16.0); Lymphocytes Absolute Auto 1600 /uL (1100-4500); Lymphocytes Percent Auto 17.1 % (25-40); Mean Corpuscular Hemoglobin 29.2 PG (26-34); Mean Corpuscular Volume 88.6 fL (80-100); Monocytes Absolute Auto 900 /uL (0-900); Monocytes Percent Auto 9.3 % (3-14); Neutrophils Absolute Auto 6500 /uL (1500-7000); Neutrophils Percent Auto 67.9 % (50-75); Platelet Count 226 X10^3/uL (150-400); Red Blood Cell Count 4.92 X10^6/uL (4.0-5.2); Red Cell Distribution Width 14.3 % (11.6-14.8); White Blood Cell Count 9.6 X10^3/uL (4.5-11.0)
[2023-10-08 16:50] LABS: Alanine Aminotransferase 19 IU/L (<35); Albumin 4.3 g/dL (3.5-5.0); Albumin Globulin Ratio 1.3 (1.0-2.8); Alkaline Phosphatase 72 U/L (38-126); Aspartate Aminotransferase 27 IU/L (14-36); BUN Creatinine Ratio 23.3 (6-22); Bilirubin Total 0.6 mg/dL (0.2-1.3); Blood Urea Nitrogen 20 mg/dL (7-17); Calcium 9.1 mg/dL (8.4-10.2); Carbon Dioxide 27 mmol/L (22-32); Chloride 103 mmol/L (98-107); Estimated Glomerular Filt Rate > 60 mL/min (>60); Globulin 3.4 g/dL (1.7-4.1); Glucose 91 mg/dL (80-110); HEMOLYSIS < 15 (0-50); Potassium 3.5 mmol/L (3.4-5.1); Sodium 136 mmol/L (137-145); Total Protein 7.7 g/dL (6.3-8.2)
== END ==
PROVIDERS: PCP Nurse Practitioner Family; Referring Provider Nurse Practitioner Family; Visit Provider Nurse Practitioner Family
DX: R17 Unspecified jaundice (principal)
CPT/HCPCS: 36415; 80053; 85025

== ENCOUNTER 2023-11-06 06:40 | Emergency (ER) | payer MEDICARE, SELFPAY ==
--- NOTE | 2023-11-06 06:41 | DI.CT.S_ITS ---
PROCEDURE: CT CERVICAL SPINE WO CON INDICATIONS: fall with head injury TECHNIQUE: Noncontrast 3 mm thick sections acquired from the skull base to the T4 level. Sagittal and coronal reformats were then constructed. For radiation dose reduction, the following was used: automated exposure control, adjustment of mA and/or kV according to patient size. COMPARISON: None. FINDINGS: Image quality: Excellent. Bones: No fractures or dislocations. Visualized superior ribs are intact. Cervical spondylosis with multilevel bony foraminal narrowing secondary to uncovertebral joint hypertrophy, as well as multilevel facet arthropathy. Soft tissues: Prevertebral soft tissues are normal in thickness. No paravertebral hematomas. No apical pneumothoraces. Very large right thyroid nodule measuring approximately 5.8 cm. IMPRESSION: 1. No acute cervical fracture or dislocation. 2. Cervical spondylosis. 3. Very large right thyroid nodule measuring 5.8 cm. Comment: Consider nonemergent further evaluation of the thyroid utilizing ultrasound, depending on clinical status. Comment: Final report is concordant with preliminary interpretation provided by [facility]. Dictated by: Joey William M.D. on 11/06/2023 at 7:27 Approved by: Joey William M.D. on 11/06/2023 at 7:29
--- NOTE | 2023-11-06 06:41 | DI.CT.S_ITS ---
PROCEDURE: CT HEAD/BRAIN WO CON INDICATIONS: fall with head injury TECHNIQUE: Noncontrast 4.5 mm thick angled axial sections acquired from the foramen magnum to the vertex, with coronal and sagittal reformats. For radiation dose reduction, the following was used: automated exposure control, adjustment of mA and/or kV according to patient size. COMPARISON: [facility], CT, CT HEAD/BRAIN WO CON, 06/07/2019, 11:27. FINDINGS: Image quality: Diagnostic. CSF spaces: Basal cisterns are patent. No extra-axial fluid collections. The ventricles are symmetric in size and shape. Brain: No intracranial bleeds or masses. There is cerebral volume loss for age, with resultant ventricular and sulcal prominence. There are periventricular and deep white matter chronic small vessel ischemic changes. There is intracranial internal carotid artery atherosclerosis. Skull and face: Occipital subgaleal hematoma. Calvarium and visualized facial bones appear intact, without suspicious lesions. Sinuses: Visualized sinuses and mastoids are clear. IMPRESSION: No acute intracranial pathology. Occipital scalp hematoma. Comment: Final report is concordant with preliminary interpretation provided by [facility]. Dictated by: Joey William M.D. on 11/06/2023 at 7:30 Approved by: Joey William M.D. on 11/06/2023 at 7:31
[2023-11-06 06:46] VITALS: BP 161/91; PULSE 84; RESP 18; TEMP 36.5; O2SAT 97
--- NOTE | 2023-11-06 07:00 | ED_ITS ---
HPI - Fall General Chief Complaint: Fall Stated Complaint: fall Time Seen by Provider: 11/06/23 06:41 Source: EMS Mode of arrival: EMS History of Present Illness HPI Narrative: 83-year-old resident of local memory care unit, had ground level fall, struck the back of her head, unclear if there was any loss of consciousness, no neuro deficits obvious. Arrival by EMS. She does not seem to know where she is, apparently that is her baseline per RN who spoke with EMS staff per memory unit staff. She does say that she has pain to the back of her head where she struck her head. She denies having any pain in her neck, face, clavicles, shoulders, arms, hands, fingers. She denies pain to her chest, abdomen, upper back, lower back. She denies any pain in her hips, thighs, knees, for legs, ankles, feet, toes. Related Data Previous Rx's Medication Instructions Recorded donepezil 5 mg tablet 5 mg PO BEDTIME #90 tabs 09/12/21 hydrochlorothiazide 25 mg tablet 25 mg PO QDAY #90 tabs 05/01/22 sertraline 50 mg tablet 75 mg (1.5 x 50 mg) PO DAILY #135 05/01/22 tabs Allergies Allergy/AdvReac Type Severity Reaction Status Date / Time No Known Drug Allergies Allergy Verified 01/18/23 18:43 Patient History Medical History (Updated 11/06/23 @ 07:41 by Olaf Marin MD) Alzheimer's dementia Status post biopsy of thyroid gland (11/25/14) Essential hypertension Mixed hyperlipidemia Social History marital status: Smoking Status: Never smoker alcohol intake: current (ON OCCASION ) substance use type: does not use Smoking Status: Never smoker alcohol intake frequency: 0-2 drinks per day Substance Use Type: does not use Exam Narrative Exam Narrative: GENERAL: Well-developed patient, in mild distress. HEAD: Tenderness at lower midline occipital scalp, without crepitance, without abrasion or laceration, no blood on here. EYES: Pupils equal round and reactive. Extraocular motions intact. No scleral icterus. No injection or drainage. ENT: Nose without bleeding, purulent drainage. Throat without erythema, tonsillar hypertrophy or exudate. Airway patent. NECK: Trachea midline. Non tender midline and paraspinal neck region, no step- off, able to move neck [id number]. CARDIOVASCULAR: Regular rate and rhythm without murmurs, gallops, or rubs. RESPIRATORY: Clear to auscultation. Breath sounds equal bilaterally. No wheezes, rales, or rhonchi. GASTROINTESTINAL: Abdomen soft, non-tender, nondistended. EXTREMITIES: No edema or joint tenderness. BACK: Nontender without deformity or crepitance. No flank tenderness. NEURO: AOx3. She can not remember where she is, does not recall her being in a memory care unit, but apparently this is her baseline memory. Motor 5/5 upper and lower extremities. Cranial nerve exam unremarkable. SKIN: No rash or erythema of visible areas Initial Vital Signs Initial Vital Signs: Vital Signs Temperature 97.7 F 11/06/23 06:46 Pulse Rate 84 11/06/23 06:46 Respiratory Rate 18 11/06/23 06:46 Blood Pressure 161/91 H 11/06/23 06:46 Pulse Oximetry 97 11/06/23 06:46 Oxygen Delivery Method Room Air 11/06/23 06:46 Course Orders Ordered: ED Orders 11/06/23 06:41 CT cervical spine wo con Stat CT head/brain wo con Stat Vital Signs Vital signs: Vital Signs - 8 hr 11/06/23 06:46 11/06/23 08:34 Temperature 97.7 F 98 F Pulse Rate 84 56 L Respiratory Rate 18 16 Blood Pressure 161/91 H 165/61 H Pulse Oximetry 97 96 Oxygen Delivery Method Room Air Room Air MDM - Fall Imaging Data CT scan - head: Radiologist's Impression: [place] [address] CT Scan Report Signed Patient: Jacqueline Blue MR#: [id number] : 1940 Acct:[id number] Age/Sex: 83 / F Date of Service: 11/06/23 Loc: ED Accession Number: [id number] Procedure: CT head/brain wo con Ordering Provider: Gary Ko D.O. PROCEDURE: CT HEAD/BRAIN WO CON INDICATIONS: fall with head injury TECHNIQUE: Noncontrast 4.5 mm thick angled axial sections acquired from the foramen magnum to the vertex, with coronal and sagittal reformats. For radiation dose reduction, the following was used: automated exposure control, adjustment of mA and/or kV according to patient size. COMPARISON: [facility], CT, CT HEAD/BRAIN WO CON, 06/07/2019, 11:27. FINDINGS: Image quality: Diagnostic. CSF spaces: Basal cisterns are patent. No extra-axial fluid collections. The ventricles are symmetric in size and shape. Brain: No intracranial bleeds or masses. There is cerebral volume loss for age, with resultant ventricular and sulcal prominence. There are periventricular and deep white matter chronic small vessel ischemic changes. There is intracranial internal carotid artery atherosclerosis. Skull and face: Occipital subgaleal hematoma. Calvarium and visualized facial bones appear intact, without suspicious lesions. Sinuses: Visualized sinuses and mastoids are clear. IMPRESSION: No acute intracranial pathology. Occipital scalp hematoma. Comment: Final report is concordant with preliminary interpretation provided by [facility]. Dictated by: Joey William M.D. on 11/06/2023 at 7:30 Approved by: Joey William M.D. on 11/06/2023 at 7:31 CT - cervical spine: Radiologist's Impression: [place] [address] CT Scan Report Signed Patient: Jacqueline Blue MR#: [id number] : 1940 Acct:[id number] Age/Sex: 83 / F Date of Service: 11/06/23 Loc: ED Accession Number: [id number] Procedure: CT cervical spine wo con Ordering Provider: Gary Ko D.O. PROCEDURE: CT CERVICAL SPINE WO CON INDICATIONS: fall with head injury TECHNIQUE: Noncontrast 3 mm thick sections acquired from the skull base to the T4 level. Sagittal and coronal reformats were then constructed. For radiation dose reduction, the following was used: automated exposure control, adjustment of mA and/or kV according to patient size. COMPARISON: None. FINDINGS: Image quality: Excellent. Bones: No fractures or dislocations. Visualized superior ribs are intact. Cervical spondylosis with multilevel bony foraminal narrowing secondary to uncovertebral joint hypertrophy, as well as multilevel facet arthropathy. Soft tissues: Prevertebral soft tissues are normal in thickness. No paravertebral hematomas. No apical pneumothoraces. Very large right thyroid nodule measuring approximately 5.8 cm. IMPRESSION: 1. No acute cervical fracture or dislocation. 2. Cervical spondylosis. 3. Very large right thyroid nodule measuring 5.8 cm. Comment: Consider nonemergent further evaluation of the thyroid utilizing ultrasound, depending on clinical status. Comment: Final report is concordant with preliminary interpretation provided by [facility]. Dictated by: Joey William M.D. on 11/06/2023 at 7:27 Approved by: Joey William M.D. on 11/06/2023 at 7:29 [facility] Narrative Medical decision making narrative: 83-year-old female [facility] care unit, had ground level fall, amnestic to the event, but apparently also has significant memory problems, at baseline per staff per EMS per RN. CT head and cervical spine imaging had been requested at after triage. Results are pending at this time. She seems able to discriminate where she hurts, admits to pain in the back of her head, but no other injuries when directly asked about pain to truncal, face, upper extremities, lower extremities. CT head shows occipital scalp hematoma, otherwise no bony or brain parenchymal injuries. CT cervical spine shows no injury patterns, but incidental large thyroid nodule noted, that will require further follow up, noted on discharge diagnoses. Trial ambulation, oral fluid challenge Patient was able to use a walker quite well with instruction in the emergency department, RN contacted [facility] care unit, they have walker available they are for use as well. Copy of CT cervical spine report with thyroid nodule also provided in discharge information, to help facilitate follow up of the thyroid nodule incidentally noted on imaging. Discharge back to [facility] Discharge Plan Departure Patient Disposition: Home Clinical Impression: Fall from ground level, Contusion of occipital region of scalp, Thyroid nodule Prescriptions: No Action donepezil 5 mg tablet 5 mg PO BEDTIME Qty: 90 3RF sertraline 50 mg tablet 75 mg PO DAILY Qty: 135 1RF hydrochlorothiazide 25 mg tablet 25 mg PO QDAY Qty: 90 1RF Referrals: Rimma Pollack ARNP [Primary Care Provider] - Stand Alone Forms: Patient Portal/API
[2023-11-06 08:34] VITALS: BP 165/61; PULSE 56; RESP 16; TEMP 36.6; O2SAT 96
== END 2023-11-06 08:34 | disposition home or self-care (01) ==
PROVIDERS: Emergency Provider Emergency Medicine; PCP Nurse Practitioner Family
DX: S00.03XA Contusion of scalp, initial encounter (principal); E04.1 Nontoxic single thyroid nodule; W18.30XA Fall on same level, unspecified, initial encounter
CPT/HCPCS: 70450; 72125; 99283; 99284

== ENCOUNTER 2023-11-08 16:25 | Emergency (ER) | payer MEDICARE, SELFPAY ==
[2023-11-08] VITALS (7 sets, daily range): BP systolic 126–142; BP diastolic 60–72; PULSE 58–74; RESP 17; TEMP 36.6; O2SAT 90–95
--- NOTE | 2023-11-08 19:03 | ED_ITS ---
HPI - Recheck/Abnormal Lab/Rx General Chief Complaint: Recheck/Abnormal Lab/Rx Stated Complaint: fell Time Seen by Provider: 11/08/23 18:54 Source: family Mode of arrival: Wheelchair History of Present Illness HPI narrative: 83-year-old woman with advanced dementia [facility] at [facility], hypertension who was seen in the emergency department on November 05 after a fall where she ended up going backwards hitting her head. CT scan and cervical spine of the neck were unremarkable. She was discharged back to [facility]. Apparently on the she was doing fairly well. Nursing staff were concerned today that she seemed more sleepy, a bit more confused, had an episode of urinary incontinence in bed which is very unusual for her. Her daughter came down and has brought her in for further evaluation. Patient is quite pleasant, smiling complaining of no pain and has no recollection of prior events. Review of systems is otherwise unobtainable secondary to her dementia Related Data Previous Rx's Medication Instructions Recorded donepezil 5 mg tablet 5 mg PO BEDTIME #90 tabs 09/12/21 hydrochlorothiazide 25 mg tablet 25 mg PO QDAY #90 tabs 05/01/22 sertraline 50 mg tablet 75 mg (1.5 x 50 mg) PO DAILY #135 05/01/22 tabs Allergies Allergy/AdvReac Type Severity Reaction Status Date / Time No Known Drug Allergies Allergy Verified 01/18/23 18:43 Patient History Medical History (Updated 11/08/23 @ 20:07 by Annita Yu MD) Alzheimer's dementia Status post biopsy of thyroid gland (11/25/14) Essential hypertension Mixed hyperlipidemia Social History marital status: Smoking Status: Never smoker alcohol intake: current (ON OCCASION ) substance use type: does not use Smoking Status: Never smoker alcohol intake frequency: 0-2 drinks per day Substance Use Type: does not use Exam Initial Vital Signs Initial Vital Signs: Vital Signs Temperature 98 F 11/08/23 16:52 Pulse Rate 74 11/08/23 16:52 Respiratory Rate 17 11/08/23 16:52 Blood Pressure 126/60 11/08/23 16:52 Pulse Oximetry 95 11/08/23 16:52 Oxygen Delivery Method Room Air 11/08/23 16:52 General: Healthy appearing, in no acute distress. Well-nourished well-developed HEENT: Moist mucous membranes, normal sclera with reactive pupils, occiput hematoma from 2 days ago is minimally appreciated today Neck: No tenderness with palpation Respiratory: Lungs are clear to auscultation, no wheezing no rales no rhonchi. Full and symmetrical air movement Cardiac: Regular rate and rhythm no murmurs no bruits Abdomen: Soft, nontender, good bowel tones, no flank pain Skin: Warm and dry, no rashes Neurologic: Moving all extremities, able to get up and walk about the emergency department without significant difficulty. Daughter feels that she is at her baseline currently Extremities: No trauma, well perfused Psych: Pleasantly demented Course Vital Signs Vital signs: Vital Signs - 8 hr 11/08/23 16:52 11/08/23 18:26 11/08/23 18:26 Temperature 98 F Pulse Rate 74 64 Respiratory Rate 17 Blood Pressure 126/60 129/72 Pulse Oximetry 95 92 Oxygen Delivery Method Room Air 11/08/23 18:30 11/08/23 18:30 11/08/23 19:00 Temperature Pulse Rate 62 63 Respiratory Rate Blood Pressure 127/70 Pulse Oximetry 92 91 Oxygen Delivery Method Room Air 11/08/23 19:00 Temperature Pulse Rate Respiratory Rate Blood Pressure 129/70 Pulse Oximetry Oxygen Delivery Method MDM - Recheck/Abnormal Lab/Rx MDM Narrative Medical decision making narrative: CC: Staff at [email or web address] concerned with behavioral changes today Complicating co-morbidities: Advanced dementia, fall seen in the ER November 05 Data collected from: patient, daughter Social determinants of health that may influence the patients condition: Advanced dementia Medical records reviewed: Notes from ER visit 11/[address] scans reviewed. Nursing notes with concerns from [facility] are reviewed Differential considered: Concussion, contusions, occult fractures, delayed intracranial hemorrhage Exam documented above, pertinent findings include: Patient is smiling and pleasant, not oriented to person time and place. No complaints of pain with any palpation. She does wince indicating pain when she is helped from a supine to a standing position. There was no orthostatic changes she is able to walk without difficulties. No obvious bruises beyond the resolving hematoma to the back of her head Imaging studies independently reviewed: CT scans of the head and cervical spine done on November 05 with initial fall are reviewed Discussion: 83-year-old woman accompanied by her daughter from [facility] facility with concerns for behavioral changes today after a fall 48 hours ago. Clinical exam does not suggest new findings or indicate additional imaging is required. There was no evidence of infection. I suspect that she is in fact hurting from her fall an unable to verbalize this. This is likely why she had the urinary incontinence today. She may also have concussion which would explain the confusion and wanting to sleep further. At this point she is in a care facility can be further observed is not complaining of any pain seems completely on bothered by any events today. With shared decision-making with her daughter he agreed that additional workup would not be helpful beyond the physical exam done in the emergency department. I believe time will likely help. I did suggest Tylenol as she seems to not want to get out of bed for the next couple of days. We will also suggest timed assistance with urination to avoid episodes of incontinence over the next couple of days until she is back to her baseline. Patient is safe for discharge Discharge Plan Departure Patient Disposition: Home Clinical Impression: Contusion Qualifiers: Encounter type: sequela Contusion area: head Contusion of head detail: other part of head Qualified Code(s): S00.83XS - Contusion of other part of head, sequela Concussion Qualifiers: Encounter type: sequela Loss of consciousness presence/duration: without LOC Qualified Code(s): S06.0X0S - Concussion without loss of consciousness, sequela Activity Restrictions/Additional Instructions: Thank you for bringing Jacqueline in for additional evaluation today Her CT scan of the head and cervical spine done on November 05 after her initial fall are again reviewed and are unremarkable. Patient has no complaints of pain is able to get up out of bed and walk around the emergency department. She does have some pain behaviors, wincing, when sitting up but with palpation I am not able to locate where those per behaviors actually are. Patient continues to deny any pain at all I suspect that the behavioral changes with the almost passing out, the increased sleepiness in the urinary incontinence are because she is having pain that she is unable to actually verbalize and likely has a concussion after her fall. There was nothing additional that needs to be done immediately. If she seems reluctant to get out of bed or participate with activities of daily living you can certainly try giving her to Tylenol. I would recommend helping her with suggested timed voiding for the next 1 or 2 days until she is obviously getting up and out of bed without pain behaviors being noticed. This will likely help with the urinary incontinence. It is okay for her to rest more including sleeping during the day over the next couple of days. If you find that you are getting worse or develop any new symptoms, please feel free to return to the emergency department for further evaluation. Prescriptions: No Action donepezil 5 mg tablet 5 mg PO BEDTIME Qty: 90 3RF sertraline 50 mg tablet 75 mg PO DAILY Qty: 135 1RF hydrochlorothiazide 25 mg tablet 25 mg PO QDAY Qty: 90 1RF Referrals: Rimma Pollack ARNP [Primary Care Provider] - Stand Alone Forms: Patient Portal/API
== END 2023-11-08 20:10 | disposition home or self-care (01) ==
PROVIDERS: Emergency Provider Emergency Medicine; PCP Nurse Practitioner Family
DX: S06.0XAA Concussion with loss of consciousness status unknown, initial encounter (principal); W18.30XA Fall on same level, unspecified, initial encounter
CPT/HCPCS: 99281; 99282

== ENCOUNTER 2023-11-15 08:26 | Emergency (ER) | payer MEDICARE, SELFPAY ==
--- NOTE | 2023-11-15 08:34 | DI.RAD.S_ITS ---
PROCEDURE: XR LUMBAR SPINE 2-3V INDICATIONS: fall, back pain TECHNIQUE: 4 views of the lumbar spine were acquired. COMPARISON: [facility], CR, XR LUMBAR SPINE 2-3V, 01/18/2023, 20:18. FINDINGS: Bones: 5 [id number] vertebrae are present. There is normal bony alignment. Moderate probable acute T12 compression fracture. No suspicious bony lesions. Soft tissues: Overlying bowel gas pattern is normal. No suspicious soft tissue calcifications. IMPRESSION: Moderate probable acute T12 compression fracture. Dictated by: Joey William M.D. on 11/15/2023 at 8:55 Approved by: Joey William M.D. on 11/15/2023 at 8:58
--- NOTE | 2023-11-15 08:34 | DI.CT.S_ITS ---
PROCEDURE: CT CERVICAL SPINE WO CON INDICATIONS: fall, back pain TECHNIQUE: Noncontrast 3 mm thick sections acquired from the skull base to the T4 level. Sagittal and coronal reformats were then constructed. For radiation dose reduction, the following was used: automated exposure control, adjustment of mA and/or kV according to patient size. COMPARISON: [facility], CT, CT CERVICAL SPINE WO CON, 11/06/2023, 6:49. FINDINGS: Image quality: Excellent. Bones: No fractures or dislocations. Visualized superior ribs are intact. Cervical spondylosis again noted. Soft tissues: Prevertebral soft tissues are normal in thickness. No paravertebral hematomas. No apical pneumothoraces. Again noted is a very large right thyroid nodule measuring 5.8 cm. IMPRESSION: 1. No acute cervical fracture or dislocation. 2. Cervical spondylosis. 3. Very large right thyroid nodule, as before. Dictated by: Joey William M.D. on 11/15/2023 at 9:19 Approved by: Joey William M.D. on 11/15/2023 at 9:21
--- NOTE | 2023-11-15 08:34 | DI.CT.S_ITS ---
PROCEDURE: CT HEAD/BRAIN WO CON INDICATIONS: fall, back pain TECHNIQUE: Noncontrast 4.5 mm thick angled axial sections acquired from the foramen magnum to the vertex, with coronal and sagittal reformats. For radiation dose reduction, the following was used: automated exposure control, adjustment of mA and/or kV according to patient size. COMPARISON: [facility], CT, CT HEAD/BRAIN WO CON, 11/06/2023, 6:49. FINDINGS: Image quality: Diagnostic. CSF spaces: Basal cisterns are patent. No extra-axial fluid collections. The ventricles are symmetric in size and shape. Brain: No intracranial bleeds or masses. There is cerebral volume loss for age, with resultant ventricular and sulcal prominence. There are periventricular and deep white matter chronic small vessel ischemic changes. There is intracranial internal carotid artery atherosclerosis. Skull and face: Calvarium and visualized facial bones appear intact, without suspicious lesions. Sinuses: Visualized sinuses and mastoids are clear. IMPRESSION: No acute intracranial pathology. Dictated by: Joey William M.D. on 11/15/2023 at 9:17 Approved by: Joey William M.D. on 11/15/2023 at 9:19
--- NOTE | 2023-11-15 08:35 | ED_ITS ---
HPI - General Adult General Chief complaint: Fall Stated complaint: Fall with head strike Time Seen by Provider: 11/15/23 08:27 Source: patient, EMS, RN notes reviewed and old records reviewed Mode of arrival: EMS Limitations: other (dementia) History of Present Illness HPI narrative: 83-year-old female history advanced dementia, hypertension who presents from [facility]. Patient had a fall today falling backwards reportedly hit her head. She has not anticoagulated. Patient had a 2nd fall earlier in the week. Staff states this was a bit atypical for her. She appears to be at baseline. She complains of the little bit of low back pain. She was able to stand and ambulate with EMS in his able to stand and pivot get on the other gurney here. She can tell me her name. She does follow commands. She can tell me she was back pain. She is very pleasant, smiling no recollection of what occurred today. Patient does not have any headache, neck pain, no chest pain or shortness of breath. No other GI or urinary symptoms reported. No new numbness tingling or weakness reported. Patient does arrive with a POLST form and is DNR/DNI. Related Data Previous Rx's Medication Instructions Recorded donepezil 5 mg tablet 5 mg PO BEDTIME #90 tabs 09/12/21 hydrochlorothiazide 25 mg tablet 25 mg PO QDAY #90 tabs 05/01/22 sertraline 50 mg tablet 75 mg (1.5 x 50 mg) PO DAILY #135 05/01/22 tabs Allergies Allergy/AdvReac Type Severity Reaction Status Date / Time No Known Drug Allergies Allergy Verified 01/18/23 18:43 Review of Systems Review of Systems ROS Unobtainable: All systems reviewed & are unremarkable except as noted in HPI and below Patient History Medical History (Updated 11/15/23 @ 09:27 by Deidre Jones DO) Alzheimer's dementia Status post biopsy of thyroid gland (11/25/14) Essential hypertension Mixed hyperlipidemia Social History marital status: Smoking Status: Never smoker alcohol intake: current (ON OCCASION ) substance use type: does not use Smoking Status: Never smoker alcohol intake frequency: 0-2 drinks per day Substance Use Type: does not use Exam Narrative Exam Narrative: GEN: Patient appears in mild distress. Patient follows command. Pleasantly confused. HEAD: No evidence of trauma, no raccoon/Kelley sign. NECK: Nontender, painless range of motion, trachea midline Negative Nexus criteria, no midline line tenderness, distracting injury, altered mental status (patient does have dementia), neuro deficit, recent EtOH. EYES: PERRLA, EOMI ENT: External inspection normal, trachea is midline, TM's are normal no hemotypanum, Nares are clear, no septal hematoma, no dental or oral injury, airway is normal and with normal occlusion, No bony tenderness RESP: Chest is nontender and has symmetric movement, no ecchymosis, breath sounds are normal no crackles, wheezes or rales CVS: Heart sounds are normal, no murmur noted, No JVD. ABG/GI: Nontender, soft, normal bowel sounds, no distention, no organomegaly, pelvic rock is negative NEURO: Oriented AOx3, neuro is grossly intact, sensation and motor is normal all 4 extremities moving, cranial nerves II through XII are intact, GCS is 14 PSYCH: Normal mood and affect SKIN: Intact, warm and dry, no crepitus and without decubitus BACK: No CVA tenderness, no vertebral tenderness, no step-off's, no crepitus EXT: Atraumatic, hips are nontender, no pedal edema, normal color and temperature, normal range of motion of extremities with normal tendon exam, 2+ pulses in all four extremities Initial Vital Signs Initial Vital Signs: Vital Signs Temperature 97.6 F 11/15/23 08:39 Pulse Rate 82 11/15/23 08:39 Respiratory Rate 18 11/15/23 08:39 Blood Pressure 175/92 H 11/15/23 08:39 Pulse Oximetry 97 11/15/23 08:39 Oxygen Delivery Method Room Air 11/15/23 08:39 Course Orders Ordered: Discontinued Medications Acetaminophen (Acetaminophen 325 Mg Tablet) 650 mg PO NOW ONE Stop: 11/15/23 08:36 Last Admin: 11/15/23 09:02 Dose: 650 mg Documented By: VANDANA Vital Signs Vital signs: Vital Signs - 8 hr 11/15/23 08:39 Temperature 97.6 F Pulse Rate 82 Respiratory Rate 18 Blood Pressure 175/92 H Pulse Oximetry 97 Oxygen Delivery Method Room Air Medical Decision Making [facility] Narrative Medical decision making narrative: 83-year-old female with reported ground level had a fall earlier in the week as well. Was seen at that time. Patient had a contusion on the occipital scalp when she was seen on the . Patient staff in the facility noted that patient has a contusion on her posterior scalp. It is also in her discharge diagnosis from 11/06/2023. Review of patient's charts from prior visits show she had a contusion on 11/06/2023 as well as described as pleasantly demented but slightly sleepy. Patient is not anticoagulated but based on extremity of age, ground level fall and recurrent visits. Head CT and C-spine were obtained. Patient does have some complaint of low back pain although no pain palpable on examination she is able to stand pivot and otherwise move appropriately without discomfort. So L- spine x-ray was also obtained. Imaging shows no acute pathology on head CT, cervical CT shows no acute cervical fracture, cervical spondylosis, very large right thyroid nodule as before. Lumbar x-ray shows moderate probable acute T12 compression fracture. Imaging changes consistent with patient's complaint of pain in her lower back. She has been able to stand, no issues with movement. Plan for discharge with PRN pain medication. Discharge Plan Departure Patient Disposition: Home Clinical Impression: Compression fracture of T12 vertebra, Fall, Back pain, Thyroid nodule Activity Restrictions/Additional Instructions: Follow up with your physician for recheck as needed. Your imaging today does show a thyroid nodule on your CT of your cervical spine, this has been seen on prior imaging it was recommended that you have this followed up unless she would not pursue any treatment for it. X-ray also shows possible T12 compression fracture based on your symptoms today I think that is true. Management is typically conservative with pain medication and time for the bone to heal. You can continue with Tylenol up to a 1000 mg every 6 hours as needed for pain. Please return for new or worsening symptoms, significant changes in mental status, new pain, difficulty with movement or other new or concerning changes. Prescriptions: No Action donepezil 5 mg tablet 5 mg PO BEDTIME Qty: 90 3RF sertraline 50 mg tablet 75 mg PO DAILY Qty: 135 1RF hydrochlorothiazide 25 mg tablet 25 mg PO QDAY Qty: 90 1RF Referrals: Rimma Pollack ARNP [Primary Care Provider] - Stand Alone Forms: Patient Portal/API
[2023-11-15 08:39] VITALS: BP 175/92; PULSE 82; RESP 18; TEMP 36.4; O2SAT 97; BMI 25.7
[2023-11-15 09:00] VITALS: PULSE 62; O2SAT 94
[2023-11-15] MEDS: ACETAMINOPHEN 325 MG TABLET 650 MG PO (09:02)
[2023-11-15 09:30] VITALS: PULSE 57; O2SAT 93
[2023-11-15 10:13] VITALS: BP 122/60; PULSE 64; RESP 16; TEMP 36.4; O2SAT 94
== END 2023-11-15 10:15 | disposition home or self-care (01) ==
PROVIDERS: Emergency Provider Emergency Medicine; PCP Nurse Practitioner Family
DX: S22.089A Unspecified fracture of T11-T12 vertebra, initial encounter for closed fracture (principal); E04.1 Nontoxic single thyroid nodule; M54.9 Dorsalgia, unspecified; W18.00XA Striking against unspecified object with subsequent fall, initial encounter
CPT/HCPCS: 70450; 72100; 72125; 99283; 99284

== ENCOUNTER → 2023-12-14 12:05 | Outpatient (CLI) | payer MEDICARE, SELFPAY ==
--- NOTE | 2023-12-14 | DI.US.S_ITS ---
PROCEDURE: US THYROID INDICATIONS: NODULE ON CT TECHNIQUE: Real-time scanning was performed of the thyroid gland, with image documentation. COMPARISON: [facility], CT, CT CERVICAL SPINE WO CON, 11/15/2023, 8:45. FINDINGS: Thyroid: Right lobe measures 7.7 x 4.9 x 4.8 cm. Replaced by large thyroid nodule. Left lobe measures 2.8 x 0.7 x 0.7 cm. Isthmus is 0.6 cm thick. Echotexture is heterogeneous. Nodule number: 1 Location: Right mid Size: 7.7 x 4.9 x 4.8 cm. Composition: Solid Echogenicity: Isoechoic Shape: wider than tall. Margins: Smooth Echogenic foci: Punctate echogenic foci. Total points: 6 ACR TI-RADS category: TR 4, moderately suspicious IMPRESSION: Right thyroid nodule measuring 7.7 cm. TR 4, moderately suspicious. FNA is recommended. ACR TI-RADS definitions and recommendations: TI-RADS 1 (benign): 0 points. FNA not needed. TI-RADS 2 (not suspicious): 2 points. FNA not needed. TI-RADS 3 (mildly suspicious): 3 points. * FNA if 2.5 cm or larger, follow up if 1.5 cm or larger (at 1, 3, and 5 years). TI-RADS 4 (moderately suspicious): 4-6 points. * FNA if 1.5 cm or larger, follow up if 1 cm or larger (at 1, 2, 3, and 5 years). TI-RADS 5 (highly suspicious): 7 points or more. * FNA if 1 cm or larger, follow up if 0.5 cm or larger (every year for 5 years). Dictated by: Mario Cheng M.D. on 12/14/2023 at 15:50 Approved by: Mario Cheng M.D. on 12/14/2023 at 15:59
== END ==
LOC: US 12:07
PROVIDERS: PCP Nurse Practitioner Family; Referring Provider Nurse Practitioner Family; Visit Provider Nurse Practitioner Family
DX: E04.1 Nontoxic single thyroid nodule (principal)
CPT/HCPCS: 76536

== ENCOUNTER → 2024-01-07 14:02 | Outpatient (CLI) | payer MEDICARE, SELFPAY ==
--- NOTE | 2024-01-07 14:05 | DI.US.S_ITS ---
PROCEDURE: US FINE NEEDLE ASPIRATION INDICATIONS: THYROID NODULE TECHNIQUE: The indications, alternatives, benefits, risks, and complications of the procedure were explained to the patient. Written informed consent was obtained and placed in the chart. The thyroid region was examined sonographically and a site was chosen for ultrasound guided percutaneous sampling. The skin was prepared and draped in the usual fashion, and anesthetized with 1% lidocaine infiltrated from the skin down to the thyroid gland. Multiple passes were then performed, with contents emptied into an appropriate pathology specimen container. A bandage was applied to the area of access at completion of the study. COMPARISON: None. FINDINGS: Location(s) of lesion(s) sampled: Right thyroid, inferior approximately 4.8 x 4.8 x 2.9 cm lesion [place]: 25 gauge hypodermic needles. Number of passes: 6 Medications: 1% lidocaine for local anaesthesia. Complications: None. IMPRESSION: Successful ultrasound-guided thyroid nodule fine needle aspiration, with cytology results pending. Please see chart below for management recommendations based on cytology results. [place] [facility] ReportingRecommendationsNon-diagnostic* Repeat US-guided FNA, with on-site cytology evaluation if possible. * Repeated non-diagnostic nodules without high suspicion US features: close observation vs surgical consult. * Consider surgery if nodule has high suspicion US features, grows >20% in 2 dimensions on followup, or patient has clinical risk factors for malignancy. Benign* If nodule has high suspicion US features: repeat US and FNA within 12 months. * If nodule has low to intermediate suspicion US features: repeat US at 12-24 months. If nodule grows (20% increase in at least 2 dimensions, with minimal increase of 2 mm or >50% change in volume), or development of new suspicious US features, then repeat FNA or continue followup. * If nodule has very low suspicion US features: followup US at >24 months. Atypia of undetermined significance, follicular lesion of undetermined significanceRepeat FNA, molecular testing, followup US, or surgical consult.Follicular neoplasm, suspicious for follicular neoplasmSurgical consult; also consider molecular testing. Suspicious for malignancySurgical consult.MalignantSurgical consult. Dictated by: Stewart Tay M.D. on 01/08/2024 at 9:58 Approved by: Stewart Tay M.D. on 01/08/2024 at 10:00
--- NOTE | 2024-01-07 15:02 | PATH_ITS ---
Note [facility] Accession Number: [id number] TESTS RESULT FLAG UNITS REF RANGE LAB Clinician Provided Cytology Information No. of containers..01 Other (Miscellaneous) No. of containers..02 Previously Prepared Cytology Slide Source: RIGHT THYROID NODULE #1 DIAGNOSIS: RIGHT THYROID NODULE #1, FINE NEEDLE ASPIRATION. INCONCLUSIVE. BETHESDA CATEGORY III. ATYPIA OF UNDETERMINED SIGNIFICANCE (AUS), SEE COMMENT. COMMENT: EXAMINATION OF THE SMEARS REVEALS A HYPOCELLULAR TO MILDLY CELLULAR ASPIRATE, COMPOSED OF COLLOID, MACROPHAGES AND BENIGN FOLLICULAR GROUPS WITH FOCAL HURTHLE CELL CHANGES. IN ADDITION, THERE ARE RARE GROUPS WITH MILD NUCLEAR ENLARGEMENT, OVERLAPPING, PALLOR AND RARE NUCLEAR MEMBRANE IRREGULARITIES. INTRANUCLEAR PSEUDOINCLUSIONS ARE NOT SEEN. THE RISK OF MALIGNANCY IN THE BETHESDA CATEGORY III IS 5-15%. ADDITIONAL MOLECULAR TESTING WILL BE PERFORMED ON THE SUBMITTED RNA VIAL FOR FURTHER EVALUATION. Pathologist ICD10: 01 E04.1 Clinical history: 01 Thyroid: Right lobe measures 7.7 x 4.9 x 4.8 cm. Replaced by large thyroid nodule. Left lobe measures 2.8 x 0.7 x 0.7 cm. Isthmus is 0.6 cm thick. Echotexture is heterogeneous. Nodule number: 1 Location: Right mid Size: 7.7 x 4.9 x 4.8 cm. Composition: Solid Echogenicjty: Isoechoic Shape: wider than tall. Margins: Smooth Echogenic foci: Punctate echogenic foci. Total points: 6 ACR T I-RADS category: TR 4, moderately suspicious IMPRESSION: Right thyroid nodule measuring 7.7 cm. TR 4, moderately suspicious. Signed out by: Shila Velazquez MD, Pathologist NPI- [id number] Performed by: Praveen Sim, Sales Office Manager ([facility]) Gross description: 30 CC, PINK, CLEAR RECIEVED: IN CYTOLYT WITH 6 ALCOHOL FIXED AND 6 QUICK STAINED SLIDES ALSO 1 RNA VIAL WILL ON 06-12-2024.VO /VDU 01/08/2024 0827 Local FLAG LEGEND: L-Low Normal,H-High Normal,LL-Alert Low,HH-Alert High <-Panic Low,>-Panic High,A-Abnormal,AA-Critical Abnormal Performed at: 01 [facility] [address], [place] [address] Cortez Araujo MD, Performed at: [address] [facility] [address], [place], [place] [id number] MD Cortez Araujo MD Phone: [phone]
== END ==
PROVIDERS: PCP Nurse Practitioner Family; Referring Provider Nurse Practitioner Family; Visit Provider Nurse Practitioner Family
DX: E04.1 Nontoxic single thyroid nodule (principal)
CPT/HCPCS: 10005

== ENCOUNTER → 2024-05-12 11:33 | Outpatient (ROUT) | payer MEDICARE, SELFPAY ==
[2024-05-12 11:43] LABS: Appearance Urine UA CLOUDY; Bilirubin Urine UA NEGATIVE (NEGATIVE); Color Urine UA YELLOW; Glucose Urine UA NEGATIVE (Negative); Ketones Urine UA NEGATIVE (NEGATIVE); Leukocyte Esterase Urine UA 3+ (NEGATIVE); Nitrite Urine UA POSITIVE (Negative); Occult Blood Urine UA TRACE-INTACT (Negative); Protein Urine UA NEGATIVE (Negative); Urobilinogen Urine UA 0.2 E.U./dL (0.2)
[2024-05-12 12:03] LABS: Bacteria Urine Many (>30); Culture Indicated Urine Specimen Cultured; RBC Urine 0-1/HPF (0-5/HPF); Squamous Epithelial Cell Urine 1-5 /HPF (0-5/HPF); Urine Volume 10mL (spun); WBC Urine >100/HPF (0-5/HPF)
== END ==
PROVIDERS: PCP Nurse Practitioner Family; Visit Provider Nurse Practitioner Family
DX: N39.0 Urinary tract infection, site not specified (principal); R30.0 Dysuria
CPT/HCPCS: 81001; 87077; 87086; 87186

== ENCOUNTER → 2024-06-20 18:26 | Outpatient (ROUT) | payer MEDICARE, SELFPAY ==
[2024-06-20 18:58] LABS: Appearance Urine UA CLEAR; Bilirubin Urine UA NEGATIVE (NEGATIVE); Color Urine UA YELLOW; Glucose Urine UA NEGATIVE (Negative); Ketones Urine UA NEGATIVE (NEGATIVE); Leukocyte Esterase Urine UA 2+ (NEGATIVE); Nitrite Urine UA NEGATIVE (Negative); Occult Blood Urine UA NEGATIVE (Negative); Protein Urine UA NEGATIVE (Negative); Urobilinogen Urine UA 0.2 E.U./dL (0.2)
[2024-06-20 19:18] LABS: Bacteria Urine Moderate (10-30); Culture Indicated Urine Specimen Cultured; RBC Urine 1-5/HPF (0-5/HPF); Squamous Epithelial Cell Urine 1-5 /HPF (0-5/HPF); Urine Volume 10mL (spun); WBC Urine 10-30/HPF (0-5/HPF)
== END ==
PROVIDERS: PCP Nurse Practitioner Family; Visit Provider Nurse Practitioner Family
DX: N39.0 Urinary tract infection, site not specified (principal)
CPT/HCPCS: 81001; 87077; 87086; 87186

== ENCOUNTER → 2024-07-12 13:53 | Outpatient (ROUT) | payer MEDICARE, SELFPAY ==
[2024-07-12 14:04] LABS: Appearance Urine UA SL CLOUDY; Bilirubin Urine UA NEGATIVE (NEGATIVE); Color Urine UA YELLOW; Glucose Urine UA NEGATIVE (Negative); Ketones Urine UA NEGATIVE (NEGATIVE); Leukocyte Esterase Urine UA 2+ (NEGATIVE); Nitrite Urine UA NEGATIVE (Negative); Occult Blood Urine UA NEGATIVE (Negative); Protein Urine UA NEGATIVE (Negative); Specific Gravity Urine UA 1.015 (1.000-1.035); Urobilinogen Urine UA 0.2 E.U./dL (0.2)
[2024-07-12 14:13] LABS: RBC Urine 0-1/HPF (0-5/HPF); Urine Volume 10mL (spun); WBC Urine 10-30/HPF (0-5/HPF)
[2024-07-12 14:14] LABS: Bacteria Urine Few (2-10); Culture Indicated Urine Specimen Cultured; Renal Epithelial Cells Urine 0-1/HPF (0-1/HPF); Squamous Epithelial Cell Urine 1-5 /HPF (0-5/HPF)
== END ==
PROVIDERS: PCP Nurse Practitioner Family; Visit Provider Nurse Practitioner Family
DX: N39.0 Urinary tract infection, site not specified (principal)
CPT/HCPCS: 81001; 87077; 87086

== ENCOUNTER → 2024-08-29 11:50 | Outpatient (ROUT) | payer MEDICARE, SELFPAY ==
[2024-08-29 12:07] LABS: Appearance Urine UA CLEAR; Bilirubin Urine UA NEGATIVE (NEGATIVE); Color Urine UA YELLOW; Glucose Urine UA NEGATIVE (Negative); Ketones Urine UA NEGATIVE (NEGATIVE); Leukocyte Esterase Urine UA 2+ (NEGATIVE); Nitrite Urine UA NEGATIVE (Negative); Occult Blood Urine UA NEGATIVE (Negative); Protein Urine UA NEGATIVE (Negative); Specific Gravity Urine UA 1.015 (1.000-1.035)
[2024-08-29 12:38] LABS: Bacteria Urine None Seen; RBC Urine 1-5/HPF (0-5/HPF); Squamous Epithelial Cell Urine 5-10 /HPF (0-5/HPF); Urine Volume 10mL (spun); WBC Urine 5-10/HPF (0-5/HPF); pH Urine UA 6.5 (4.5-8.0)
[2024-08-29 12:39] LABS: Culture Indicated Urine Cult Not Indicated
== END ==
PROVIDERS: PCP Nurse Practitioner Family; Visit Provider Nurse Practitioner Family
DX: R30.0 Dysuria (principal)
CPT/HCPCS: 81001

== ENCOUNTER → 2024-09-25 15:10 | Outpatient (ROUT) | payer MEDICARE, SELFPAY ==
[2024-09-25 15:31] LABS: Appearance Urine UA SL CLOUDY; Bilirubin Urine UA NEGATIVE (NEGATIVE); Color Urine UA YELLOW; Glucose Urine UA NEGATIVE (Negative); Ketones Urine UA NEGATIVE (NEGATIVE); Leukocyte Esterase Urine UA 3+ (NEGATIVE); Nitrite Urine UA POSITIVE (Negative); Occult Blood Urine UA NEGATIVE (Negative); Protein Urine UA NEGATIVE (Negative); Specific Gravity Urine UA 1.015 (1.000-1.035)
[2024-09-25 15:42] LABS: Bacteria Urine Moderate (10-30); Culture Indicated Urine Specimen Cultured; RBC Urine 1-5/HPF (0-5/HPF); Squamous Epithelial Cell Urine 0-1 /HPF (0-5/HPF); Urine Volume 10mL (spun); WBC Urine 10-30/HPF (0-5/HPF)
== END ==
LOC: LAB 15:10
PROVIDERS: PCP Nurse Practitioner Family; Visit Provider Nurse Practitioner Family
DX: R41.82 Altered mental status, unspecified (principal)
CPT/HCPCS: 81001; 87077; 87086; 87186

== ENCOUNTER → 2024-11-13 15:31 | Outpatient (ROUT) | payer MEDICARE, SELFPAY ==
[2024-11-13 15:40] LABS: Appearance Urine UA CLEAR; Bilirubin Urine UA NEGATIVE (NEGATIVE); Color Urine UA YELLOW; Glucose Urine UA NEGATIVE (Negative); Ketones Urine UA NEGATIVE (NEGATIVE); Leukocyte Esterase Urine UA 2+ (NEGATIVE); Nitrite Urine UA NEGATIVE (Negative); Occult Blood Urine UA NEGATIVE (Negative); Protein Urine UA NEGATIVE (Negative)
[2024-11-13 15:51] LABS: Bacteria Urine Few (2-10); Culture Indicated Urine Specimen Cultured; Mucus Urine 1+ (Negative); RBC Urine None Seen (0-5/HPF); Squamous Epithelial Cell Urine 5-10 /HPF (0-5/HPF); Urine Volume 10mL (spun); WBC Urine 5-10/HPF (0-5/HPF)
== END ==
LOC: LAB 15:31
PROVIDERS: PCP Nurse Practitioner Family; Visit Provider Nurse Practitioner Family
DX: R41.82 Altered mental status, unspecified (principal)
CPT/HCPCS: 81001; 87086

== ENCOUNTER → 2024-11-29 19:50 | Outpatient (ROUT) | payer MEDICARE, SELFPAY ==
[2024-11-29 20:17] LABS: Appearance Urine UA CLEAR; Bilirubin Urine UA NEGATIVE (NEGATIVE); Color Urine UA YELLOW; Glucose Urine UA NEGATIVE (Negative); Ketones Urine UA TRACE (NEGATIVE); Leukocyte Esterase Urine UA 2+ (NEGATIVE); Nitrite Urine UA NEGATIVE (Negative); Occult Blood Urine UA NEGATIVE (Negative); Protein Urine UA TRACE (Negative); Specific Gravity Urine UA 1.025 (1.000-1.035)
[2024-11-29 20:23] LABS: pH Urine UA 6.5 (4.5-8.0)
[2024-11-29 20:25] LABS: Bacteria Urine Few (2-10); RBC Urine None Seen (0-5/HPF); Squamous Epithelial Cell Urine 1-5 /HPF (0-5/HPF); Urine Volume 10mL (spun); WBC Urine 5-10/HPF (0-5/HPF)
[2024-11-29 20:26] LABS: Culture Indicated Urine Specimen Cultured
== END ==
PROVIDERS: PCP Nurse Practitioner Family; Visit Provider Nurse Practitioner Family
DX: R41.82 Altered mental status, unspecified (principal)
CPT/HCPCS: 81001; 87086